=== PATIENT | female | born 1930 | race Caucasian/White ===

== ENCOUNTER 2019-12-26 15:56 | Emergency (ER) | payer BC, SELFPAY ==
[~2019-12-26] VITALS: Ht 162.6 cm; Wt 59.1 kg
[2019-12-26] MEDS ORDERED: VITA200016 (16:08)
[2019-12-26] MEDS ORDERED: NITR0.4S14 SL (16:08)
[2019-12-26] MEDS ORDERED: ATOR40TA75 (16:08)
[2019-12-26] MEDS ORDERED: PANT20TA6 (16:08)
[2019-12-26] MEDS ORDERED: IRON65TA2 (16:08)
[2019-12-26] MEDS ORDERED: CLOP75TA2 (16:08)
[2019-12-26] MEDS ORDERED: ACET-683 PO (16:11)
[2019-12-26 16:25] VITALS: BP 178/90
[2019-12-26] MEDS ORDERED: NS 500 ML IV ONE (17:00)
[2019-12-26 17:27] LABS: BASO % 0.5 % (0.0-1.0); EOS % 0.2 % (0.0-3.0); HEMATOCRIT 44.7 % (36.0-47.0); HEMOGLOBIN 14.3 g/dl (12.0-15.5); LYMPH # 0.6 10^3/uL (1.5-5.0); LYMPH % 7.1 % (24.0-44.0); MEAN CORPUSCULAR VOLUME 93.9 fl (80.0-96.0); MONO # 0.4 10^3/uL (0.0-0.8); MONO % 4.7 % (0.0-5.0); NEUTROPHILS # 7.7 10^3/uL (1.5-8.5); NEUTROPHILS % 86.9 % (36.0-66.0); PLATELET COUNT, AUTOMATED 166 10^3/uL (150-450); RED BLOOD COUNT 4.76 10^6/uL (4.00-5.40); WHITE BLOOD COUNT 8.9 10^3/uL (4.0-10.0)
[2019-12-26] MEDS ORDERED: MORPHINE 2 MG/ML 1ML VIAL (J2270) IV ONE (17:30)
[2019-12-26 17:48] LABS: ALBUMIN 3.4 GM/DL (3.2-5.2); BILIRUBIN,DIRECT 0.2 MG/DL (0.0-0.2); BILIRUBIN,TOTAL 0.5 MG/DL (0.2-1.0); TOTAL PROTEIN 6.9 GM/DL (6.4-8.2)
[2019-12-26] MEDS ORDERED: ISOVUE-370 76% 100ML VIAL As Ordered ONE (17:55)
--- NOTE | 2019-12-26 18:34 | REPVR ---
PROCEDURE INFORMATION: Exam: CT Abdomen And Pelvis With Contrast Exam date and time: 12/26/2019 6:02 PM Age: 89 years old Clinical indication: Injury or trauma; Fall; Initial encounter; Blunt; Generalized TECHNIQUE: Imaging protocol: Computed tomography of the abdomen and pelvis with intravenous contrast. Radiation optimization: All CT scans at this facility use at least one of these dose optimization techniques: automated exposure control; mA and/or kV adjustment per patient size (includes targeted exams where dose is matched to clinical indication); or iterative reconstruction. Contrast material: ISOVUE 370; Contrast volume: 100 ml; Contrast route: INTRAVENOUS (IV); COMPARISON: No relevant prior studies available. FINDINGS: Mediastinal space: A small to moderate hiatal hernia is present. Liver: There is a diffuse decrease in hepatic parenchymal density, consistent with steatosis. Gallbladder and bile ducts: Normal. No calcified stones. No ductal dilation. Pancreas: There is diffuse pancreatic atrophy. Spleen: Normal. No splenomegaly. Adrenals: Normal. No mass. Kidneys and ureters: Bilateral simple renal cysts measure up to 2.2 cm in the right kidney. No follow-up suggested. Stomach and bowel: Moderate diverticulosis is present in the distal colon. No diverticulitis. Appendix: No evidence of appendicitis. Intraperitoneal space: Unremarkable. No free air. No significant fluid collection. Vasculature: The aortoiliac vessels demonstrate moderate atherosclerotic calcification. The aorta is ectatic. Lymph nodes: Unremarkable. No enlarged lymph nodes. Bladder: Unremarkable as visualized. Reproductive: There has been a hysterectomy. Bones/joints: Moderate central spinal stenosis L2-L3, severe central spinal stenosis at L3-L4 and L4-L5. Status post hip replacement on the right. Status post healed fracture left inferior pubic ramus. Soft tissues: Unremarkable. Other findings: Osteoporosis. Levoscoliosis. IMPRESSION: 1. There is a diffuse decrease in hepatic parenchymal density, consistent with steatosis. 2. A small to moderate hiatal hernia is present. 3. Bilateral simple renal cysts measure up to 2.2 cm in the right kidney. No follow-up suggested. 4. Moderate diverticulosis is present in the distal colon. No diverticulitis. 5. There has been a hysterectomy. 6. There is diffuse pancreatic atrophy. COMMENTS: Consistent with the [employer]'s Incidental Findings Committee white paper ([employer] 2018): Any incidental renal lesion less than 1.0 cm or classified as too small to characterize, or any incidental cystic renal lesion characterized as simple-appearing, is likely benign. No follow-up imaging is recommended for these lesions per consensus recommendations based on imaging criteria. Electronically signed by: Noman Cloud On 12/26/2019 18:33:37 PM
--- NOTE | 2019-12-26 18:39 | REPVR ---
PROCEDURE INFORMATION: Exam: CT Chest With Contrast Exam date and time: 12/26/2019 6:02 PM Age: 89 years old Clinical indication: Injury or trauma; Fall; Initial encounter; Blunt trauma (contusions or hematomas) TECHNIQUE: Imaging protocol: Computed tomography of the chest with intravenous contrast. Radiation optimization: All CT scans at this facility use at least one of these dose optimization techniques: automated exposure control; mA and/or kV adjustment per patient size (includes targeted exams where dose is matched to clinical indication); or iterative reconstruction. Contrast material: ISOVUE 370; Contrast volume: 100 ml; Contrast route: INTRAVENOUS (IV); COMPARISON: No relevant prior studies available. FINDINGS: Lungs: Bibasilar parenchymal scarring/atelectasis. Lungs otherwise clear. Pleural space: Unremarkable. No pneumothorax. No pleural effusion. Heart: There is moderate atherosclerotic calcification of the coronary arteries. There is mild cardiomegaly. Mediastinal space: A small moderate hiatal hernia is present. Aorta: There is sugn-go-gstusrck atherosclerosis in the thoracic aorta. 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 Lymph nodes: Unremarkable. No enlarged lymph nodes. Bones/joints: Osteoporosis. Severe age-indeterminate vertebral collapse at T8. Clinical correlation to exclude acute fracture suggested. Soft tissues: Unremarkable. IMPRESSION: 1. There is mild cardiomegaly. 2. A small moderate hiatal hernia is present. 3. 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 4. Severe age-indeterminate vertebral collapse at T8. Clinical correlation to exclude acute fracture suggested. Electronically signed by: Noman Cluod On 12/26/2019 18:38:55 PM
--- NOTE | 2019-12-27 13:38 | ED PDOC ---
Post-Departure Follow-Up certified letter sent to [facility] re formal read of ct chest - needs fu. please obttaconstantine n pcp name and fax number and fax to pcp Khari Meadows MD Dec 27, 2019 13:38
== END 2019-12-26 19:35 | disposition home or self-care (01) ==
LOC: M ED 15:56
DX: S23.41XA Sprain of ribs, initial encounter (principal); S22.068A Other fracture of T7-T8 thoracic vertebra, initial encounter for closed fracture; W01.0XXA Fall on same level from slipping, tripping and stumbling without subsequent striking against object, initial encounter; Y92.89 Other specified places as the place of occurrence of the external cause; I72.8 Aneurysm of other specified arteries; I10 Essential (primary) hypertension; E78.9 Disorder of lipoprotein metabolism, unspecified; Z79.899 Other long term (current) drug therapy; Z79.01 Long term (current) use of anticoagulants; Z88.5 Allergy status to narcotic agent
CPT/HCPCS: 71260; 74177; 80047; 80076; 83690; 85025; 86850; 86900; 86901; 96374; 99284; J2270; Q9967